=== PATIENT | female | born 1960 | race African-American/Black ===

== ENCOUNTER 2019-06-22 11:15 | Emergency (ER) | payer OTHER ==
[~2019-06-22] VITALS: Ht 165.1 cm; Wt 79.4 kg
[2019-06-22] MEDS ORDERED: ONDANSETRON HCL 4 MG ORAL DISINTEGRATING TAB PO ONE (12:00)
[2019-06-22] MEDS ORDERED: DEXAMETHASONE SOD PHOS 10 MG/1 ML VIAL IM ONE (12:00)
[2019-06-22] MEDS ORDERED: HYDROCODONE/APAP 5MG-325MG TAB PO ONE ×2 (12:00→14:00)
[2019-06-22] MEDS ORDERED: PREDNISONE 20 MG TAB PO ONE (12:00)
--- NOTE | 2019-06-22 12:49 | NUR ---
PT GIVEN TORADOL IM FLEXERAL MEDROL DOSE PK ALL AT [facility] TESTER TODAY AT ER.
[2019-06-22] MEDS ORDERED: CYCLOBENZAPRINE10 MG PO (12:52)
[2019-06-22] MEDS ORDERED: [UNRECOGNIZED DRUG - OTHER] (12:52)
[2019-06-22] MEDS ORDERED: MEDROL DOSE PAK (12:52)
[2019-06-22] MEDS ORDERED: PANTOPRAZOLE SO40 MG PO (12:52)
--- NOTE | 2019-06-22 13:33 | Diagnostic Imaging Report ---
CT LUMBAR SPINE WITHOUT-HOPD HISTORY: Back pain COMPARISON: None. TECHNIQUE: Axial CT images of the lumbar spine were obtained without contrast. Coronal and sagittal reconstructions obtained from the axial data. One or more of the following dose reduction techniques were used: Automated exposure control, adjustment of the mA and/or kV according to patient size, and/or utilization of iterative reconstruction technique. DISCUSSION: Partially visualized posterior thoracolumbar fusion changes span to the L1 level. Associated laminectomies are present. Hardware streak artifacts obscure some details. Associated osteotomy changes are seen along the medial left iliac bone. There are 5 nonrib-bearing lumbar vertebral bodies. Lumbar lordosis is preserved. There is no significant scoliosis or subluxation. No fracture, compression deformity, or destructive osseous lesion is seen. No gross spinal canal mass is seen. The paravertebral and paraspinal soft tissues are unremarkable. Mild multilevel lumbar spondylosis is present. Mild bilateral sacroiliac degenerative changes are present as well. L1-L2: No gross canal or foraminal stenosis. L2-L3: No gross canal or foraminal stenosis. L3-L4: No gross canal or foraminal stenosis. L4-L5: No gross canal or foraminal stenosis. L5-S1: No gross canal or foraminal stenosis. Mild aortoiliac calcified atherosclerosis is present. IMPRESSION: 1. Partially visualized posterior thoracolumbar fusion changes spanning to the L1 level with associated laminectomies. 2. No acute osseous abnormalities. 3. Mild multilevel lumbar spondylosis. No gross canal or foraminal stenosis. Signed by: Dr. Pierre Mckeon M.D. on 06/22/2019 1:29 PM
[2019-06-22] MEDS ORDERED: HYDROCODONE/APAP 5MG-325MG TAB ONE (13:36)
== END 2019-06-22 14:00 | disposition home or self-care (01) ==
LOC: FSED 11:15
DX: M54.5 Low back pain (principal); M54.16 Radiculopathy, lumbar region; X50.0XXA Overexertion from strenuous movement or load, initial encounter; Y92.89 Other specified places as the place of occurrence of the external cause
CPT/HCPCS: 72131; 81003; 99283; J1100

== ENCOUNTER 2019-09-07 10:23 | Emergency (ER) | payer OTHER ==
[~2019-09-07] VITALS: Ht 157.5 cm; Wt 70.3 kg
[~2019-09-07 10:23] MED LIST: CYCLOBENZAPRINE10 MG PO; MEDROL DOSE PAK; PANTOPRAZOLE SO40 MG PO; [UNRECOGNIZED DRUG - OTHER]
--- OUTSIDE RECORDS SUMMARY | 2019-09-07 10:26 | XMS REPORT ---
[facility] Address Unknown Phone Unavailable Care Team Providers Care Condominium Property Manager Name Role Phone Misael ESCUDERO Unavailable Unavailable Problems This patient has no known problems. Allergies, Adverse Reactions, Alerts This patient has no known allergies or adverse reactions. Medications This patient has no known medications. Results Test Description Test Time Test Comments Text Results Atomic Results Result Comments CT LUMBAR SPINE WITHOUT-HOPD 2019-06-22 13:23:00 [place] [address] Patient Name: HOANG DUBOIS MR #: [id number] : 1960 Age/Sex: 59/F Req #: [id number] Adm Physician: Ordered by: SHARMILA ESCUDERO MD Report #: [id number] Location: [facility] Room/Bed: Procedure: [id number] HOPD/CT LUMBAR SPINE WITHOUT-HOPD Exam Date: 06/22/19 Exam Time: 1300 REPORT STATUS: Signed CT LUMBAR SPINE WITHOUT-HOPD HISTORY: Back pain COMPARISON: None. TECHNIQUE: Axial CT images of the lumbar spine were obtained without contrast. Coronal and sagittal reconstructions obtained from the axial data. One or more of the following dose reduction techniques were used: Automated exposure control, adjustment of the mA and/or kV according to patient size, and/or utilization of iterative reconstruction technique. DISCUSSION: Partially visualized posterior thoracolumbar fusion changes span to the L1 level. Associated laminectomies are present. Hardware streak artifacts obscure some details. Associated osteotomy changes are seen along the medial left iliac bone. There are 5 nonrib-bearing lumbar vertebral bodies. Lumbar lordosis is preserved. There is no significant scoliosis or subluxation. No fracture, compression deformity, or destructive osseous lesion is seen. No gross spinal canal mass is seen. The paravertebral and paraspinal soft tissues are unremarkable. Mild multilevel lumbar spondylosis is present. Mild bilateral sacroiliac degenerative changes are present as well. L1-L2: No gross canal or foraminal stenosis. L2- L3: No gross canal or foraminal stenosis. L3-L4: No gross canal or foraminal stenosis. L4-L5: No gross canal or foraminal stenosis. L5- S1: No gross canal or foraminal stenosis. Mild aortoiliac calcified atheros clerosis is present. IMPRESSION: 1. Partially visualized posterior thoracolumbar fusion changes spanning to the L1 level with associated laminectomies. 2. No acute osseous abnormalities. 3. Mild multilevel lumbar spondylosis. No gross canal or foraminal stenosis. Signed by: Dr. Pierre Cobb M.D. on 06/22/2019 1:29 PM Dictated By: PIERRE COBB MD [id number] Transcribed By: GLORY on 06/22/19 1329 COPY TO: SHARMILA ESCUDERO MD
[2019-09-07] MEDS ORDERED: KETOROLAC TROMETHAMINE 60 MG/2 ML VIAL IM ONE (10:45)
[2019-09-07] MEDS ORDERED: ONDANSETRON HCL 4 MG ORAL DISINTEGRATING TAB PO ONE (10:45)
[2019-09-07] MEDS ORDERED: HYDROCODONE/APAP 5MG-325MG TAB PO ONE (10:45)
[2019-09-07] MEDS ORDERED: PREDNISONE 20 MG TAB PO ONE (10:45)
[2019-09-07] MEDS ORDERED: MELOXICAM7.5 MG PO (10:46)
[2019-09-07] MEDS ORDERED: KETOROLAC TROMETHAMINE 60 MG/2 ML VIAL ONE (11:14)
[2019-09-07] MEDS ORDERED: PREDNISONE 20 MG TAB ONE (11:14)
[2019-09-07] MEDS ORDERED: ONDANSETRON HCL 4 MG ORAL DISINTEGRATING TAB ONE (11:14)
[2019-09-07] MEDS ORDERED: HYDROCODONE/APAP 5MG-325MG TAB ONE (11:15)
[2019-09-07 11:52] VITALS: BP 156/90
== END 2019-09-07 11:58 | disposition home or self-care (01) ==
LOC: FSED 10:23
DX: M54.42 Lumbago with sciatica, left side (principal); M54.41 Lumbago with sciatica, right side; M47.26 Other spondylosis with radiculopathy, lumbar region; G89.29 Other chronic pain; I10 Essential (primary) hypertension
CPT/HCPCS: 81003; 96372; 99283; J1885; J7512; Q0162

== ENCOUNTER 2020-09-07 07:34 | Emergency (ER) | payer OTHER ==
[~2020-09-07] VITALS: Ht 157.5 cm; Wt 71.3 kg
[~2020-09-07 07:34] MED LIST changes: +MELOXICAM7.5 MG PO
[2020-09-07] MEDS ORDERED: LORAZEPAM INJ 2 MG/ML VIAL IM ONE (08:15)
[2020-09-07] MEDS ORDERED: KETOROLAC TROMETHAMINE 60 MG/2 ML VIAL IM ONE (08:15)
[2020-09-07] MEDS ORDERED: KETOROLAC TROMETHAMINE 60 MG/2 ML VIAL ONE (08:18)
[2020-09-07] MEDS ORDERED: LORAZEPAM INJ 2 MG/ML VIAL ONE (08:18)
[2020-09-07] MEDS ORDERED: CYCLOBENZAPRINE5 MG PO (08:19)
[2020-09-07] MEDS ORDERED: PREDNISONE20 MG PO (08:19)
--- NOTE | 2020-09-07 08:21 | Emergency Department Note ---
History of Present Illnes History of Present Illness Chief Complaint: low back muscle spasms s/p lifting boxes History of Present Illness This is a 60 year old female . Historian: Patient Arrival Mode: Car Additional Treatment ASSOCIATE APPLICATION DEVELOPER: 0430 gabapentin History limited by: condition of the patient (normal) Scrap Metal Burner Required: No Onset (how long ago): day(s) (1) Location: see above Quality: sharp Radiation: Reports non-radiation Severity: severe Onset quality: gradual Duration (how long): day(s) (1) Timing of current episode: constant Progression: worsening Chronicity: recurrent Context: Reports trauma/injury; Denies recent illness, Denies recent surgery, Denies recent immobilization, Denies recent travel, Denies new medications, Denies hx of DVT/PE, Denies non- compliance w/ medications Relieving factors: none Exacerbating factors: movement Associated symptoms: Reports denies other symptoms Treatments prior to arrival: none Past Medical/Family History Physician Review I have reviewed the patient's past medical and family history. Any updates have been documented here. Past Medical History Recent Fever: No Clinical Suspicion of Infectio: No New/Unexplained Change in Ment: No Past Medical History: Hypertension, GERD, Chronic Back Pain Past Surgical History: Back Surgery Other Surgery: scoliosis repair Social History Smoking Cessation: Never Smoker Counseling Performed: No Alcohol Use: None Any Illegal Drug Use: No Physically hurt or threatened: No Other Any Pre-Existing Lines (PICC,: No Review of Systems Review of Systems Constitutional: Reports no symptoms EENTM: Reports no symptoms Cardiovascular: Reports no symptoms Respiratory: Reports no symptoms Gastrointestinal: Reports no symptoms Genitourinary: Reports no symptoms Musculoskeletal: Reports as per HPI Integumentary: Reports no symptoms Neurological: Reports no symptoms Psychological: Reports no symptoms Endocrine: Reports no symptoms Hematological/Lymphatic: Reports no symptoms Review of other systems: All other systems negative Physical Exam Related Data Allergies: Coded Allergies: Sulfa (Sulfonamide Antibiotics) (Verified Allergy, Unknown, 06/22/19) Triage Vital Signs Vital Signs Date Time Temp Pulse Resp B/P (MAP) Pulse Ox O2 Delivery O2 Flow Rate FiO2 09/07/20 07:40 98.9 81 20 156/85 100 Room Air Vital signs reviewed: Yes Physical Exam CONSTITUTIONAL Constitutional: Present well-developed, Present well-nourished, Present other (+anxious) HENT HENT: Present normocephalic, Present atraumatic, Present oropharynx clear/moist, Present nose normal HENT L/R: Present left ext ear normal, Present right ext ear normal EYES Eyes: Reports PERRL, Reports conjunctivae normal NECK Neck: Present ROM normal, Present supple PULMONARY Pulmonary: Present effort normal, Present breath sounds normal CARDIOVASCULAR Cardiovascular: Present regular rhythm, Present heart sounds normal, Present capillary refill normal, Present normal rate GASTROINTESTINAL Abdominal: Present soft, Present nontender, Present bowel sounds normal GENITOURINARY Genitourinary: Present exam deferred SKIN Skin: Present warm, Present dry MUSCULOSKELETAL Musculoskeletal: Present tenderness (low back), Present other (+muscle spasms/ decrease farom) NEUROLOGICAL Neurological: Present alert, Present oriented x 3, Present no gross motor or sensory deficits PSYCHOLOGICAL Psychological: Present mood/affect normal, Present judgement normal Assessment & Plan Medical Decision Making MDM strain Assessment & Plan Final Impression: (1) Lumbar strain Depart Disposition: HOME, SELF-CARE Last Vital Signs Date Time Temp Pulse Resp B/P (MAP) Pulse Ox O2 Delivery O2 Flow Rate FiO2 09/07/20 07:40 98.9 81 20 156/85 100 Room Air Home Meds Active Scripts Cyclobenzaprine Hcl (FLEXERIL) 5 Mg Tablet, 10 MG PO Q8H PRN for MUSCLE SPASMS, #30 TAB take after prednisone to control pain if need be Prov:FREDERIC SANCHEZ 09/07/20 Prednisone (PREDNISONE) 20 Mg Tab, 60 MG PO DAILY, #18 TAB take all 3 20 mg pills at once Prov:FREDERIC SANCHEZ 09/07/20 Reported Medications Meloxicam (MELOXICAM) 7.5 Mg Tablet, 15 MG PO DAILY, #30 TAB 09/07/19 Cyclobenzaprine Hcl (CYCLOBENZAPRINE HCL) 10 Mg Tablet, 5 MG PO HS, TAB 06/22/19 Pantoprazole Sodium* (PROTONIX) 40 Mg Tablet.dr, 40 MG PO DAILY, TAB 06/22/19 [Amlodipine Besy-Lizz] No Conflict Check 06/22/19 Medications in the ED Ketorolac Tromethamine 60 mg ONCE ONCE IM ; Start 09/07/20 at 08:15; Stop 09/07/20 at 08:16; Status UNV Lorazepam 2 mg ONCE ONCE IM ; Start 09/07/20 at 08:15; Stop 09/07/20 at 08:16; Status UNFREDERIC VELÁSQUEZ Sep 07, 2020 08:21
[2020-09-07 09:45] VITALS: BP 138/85
--- OUTSIDE RECORDS SUMMARY | 2020-09-12 18:20 | XMS REPORT | Clinical Summary ---
Author Author ZAHRA [facility] Address Unknown Phone Unavailable Care Team Providers Care Business Job Titles Name Role Phone Kellie Giron MD PCP [phone] Allergies Comments Active Allergy Reactions Severity Noted Date Sulfa (Sulfonamide 11/30/2015 Antibiotics) Medications End Date Status Medication Sig Dispensed Refills Start Date Active nabumetone (RELAFEN) 500 Take 500 mg 0 MG tablet by mouth 2 (two) times daily. Active amLODIPine-benazepril Take 1 0 (LOTREL 5-10) 5-10 mg per capsule by capsule mouth daily. 01/09/2020 Discontinued (Error) IRON, FERROUS SULFATE, Take by 0 ORAL mouth. 01/11/2020 Discontinued amlodipine-benazepril Take 1 0 (LOTREL) 10-40 mg per capsule by capsule mouth daily. 01/09/2020 Discontinued (Error) sulindac (CLINORIL) 150 Take 150 mg 0 MG tablet by mouth 2 (two) times daily. 01/24/2020 famotidine (PEPCID) 40 MG Take 0.5 14 tablet 0 tablet tablets (20 0 mg total) by mouth 2 (two) times daily for 14 days. Active Problems Problem Noted Date Acute chest pain 01/09/2020 Gastroesophageal reflux disease without esophagitis 01/09/2020 Essential hypertension 01/09/2020 Resolved Problems Problem Noted Date Resolved Date Unstable angina 01/09/2020 01/09/2020 Unstable angina 01/09/2020 01/09/2020 Encounters Care Team Description Date Type Specialty Exposure to SARS-associated coronavirus (Primary Dx) 05/29/2020 Clinical Urgent Care Support Exposure to SARS-associated coronavirus (Primary Dx) 04/25/2020 Clinical Urgent Care Support Exposure to SARS-associated coronavirus (Primary Dx) 03/21/2020 Clinical Urgent Care Support Exposure to SARS-associated coronavirus (Primary Dx) 02/29/2020 Clinical Urgent Care Support Mando Lara Jr., MD Quadri, Syed M., MD Unstable angina (HCC) (Primary Dx); Essential hypertension; Acute chest pain 01/09/2020 Emergency Cardiology - 01/10/2020 01/09/2020 Orders Only General Internal Me dicine 01/09/2020 Travel after 09/07/2019 Social History Date Tobacco Use Types Packs/Day Years Used Never Smoker Smokeless Tobacco: Never Used Drinks/Week oz/Week Comments Alcohol Use No Alcohol Habits Answer Date Recorded How often do you have a drink containing alcohol? Never 01/09/2020 How many drinks containing alcohol do you have on No t asked a typical day when you are drinking? How often do you have six or more drinks on one Not asked occasion? Sex Assigned at Date Recorded Not on file Last Filed Vital Signs Reading Time Taken Comments Vital Sign 122/58 01/10/2020 3:00 PM [employer] Blood Pressure 93 01/10/2020 3:00 PM [employer] Pulse 35.8 C (96.5 F) 01/10/2020 3:00 PM [employer] Temperature 18 01/10/2020 3:00 PM [employer] Respiratory Rate 96% 01/10/2020 3:00 PM [employer] Oxygen Saturation - - Inhaled Oxygen Concentration 64.4 kg (142 lb) 01/09/2020 6:42 AM [employer] Weight 157.5 cm (5' 2") 01/09/2020 6:42 AM [employer] Height 25.97 01/09/2020 6:42 AM [employer] Body Mass Index Plan of Treatment Health Maintenance Due Date Last Done Comments COLON CANCER SCREENING 1958 COLONOSCOPY CERVICAL CANCER SCREENING 1979 PAP ONLY (Age 21-65) INFLUENZA VACCINE (#1) 2020 LIPID PANEL 10/15/2021 10/15/2018 BREAST CANCER SCREENING 01/17/2022 01/18/2020, 10/15/2018, 12/13/2013, Additional history exists Procedures Comments Procedure Name Priority Date/Time Associated Diag nosis SARS-COV2/RT-PCR ([facility] & Routine 05/29/2020 Expos ure to REF LABS) 7:57 AM CDT SARS-associated coronavirus SARS-COV-2(COVID19)HIGHRI Routine 05/29/2020 Expo sure to SKRT-PCR 7:57 AM CDT SARS-associated coronavirus SARS-COV2/RT-PCR ([facility] & Routine 04/25/2020 Expos ure to REF LABS) 9:13 AM CDT SARS-associated coronavirus SARS-COV2/RT-PCR ([facility] & Routine 03/21/2020 Expos ure to REF LABS) 10:04 AM CDT SARS-associated coronavirus SARS-COV2/RT-PCR ([facility] & Routine 02/29/2020 Expos ure to REF LABS) 10:06 AM CDT SARS-associated coronavirus RHYTHM STRIP - SCAN 01/18/2020 4:20 PM CDT RHYTHM STRIP - SCAN 01/12/2020 2:50 PM [employer] REPORT OF PROCEDURE - 01/12/2020 ENDOSCOPY SCAN 2:50 PM [employer] NM MYOCARDIAL PERFUSION Routine 01/10/2020 SPECT, PHARM(LEXISCAN) 12:05 PM [employer] TREADMILL Routine 01/10/2020 TOLERANCE(NON-NUCLEAR 10:15 AM [employer] TREADMILL) ECG 12-LEAD Routine 01/10/2020 10:07 AM [employer] Procedure Note - Interface, External Ris In - 01/10/2020 10:46 AM [employer] Ventricula r Rate 84 BPM Atrial Rate 84 BPM P-R Interval 154 ms QRS Duration 114 ms Q-T Interval 400 ms QTC Calculatio n(Bazett) 472 ms P [place] 74 degrees R [place] 84 degrees T [place] -44 degrees Sinus rhythm with marked sinus arrhythmia Nonspecifi c ST and T wave abnormalit y Prolonged QT Abnormal ECG ECG 12-LEAD Routine 01/10/2020 10:00 AM [employer] ECG 12-LEAD Routine 01/10/2020 10:00 AM [employer] Procedure Note - Interface, External Ris In - 01/10/2020 10:45 AM [employer] Ventricula r Rate 71 BPM Atrial Rate 71 BPM P-R Interval 128 ms QRS Duration 88 ms Q-T Interval 412 ms QTC Calculatio n(Bazett) 447 ms P [place] 31 degrees R [place] 41 degrees T [place] 27 degrees Normal sinus rhythm Normal ECG ECG 12-LEAD Routine 01/10/2020 7:04 AM [employer] TROPONIN I Routine 01/09/2020 1:03 PM [employer] TROPONIN I STAT 01/09/2020 9:48 AM [employer] XR CHEST 1 VIEW STAT 01/09/2020 PORTABLE/BEDSIDE 7:29 AM [employer] ECG 12-LEAD Routine 01/09/2020 7:13 AM [employer] ECG 12-LEAD Routine 01/09/2020 7:13 AM [employer] Procedure Note - Interface, External Ris In - 01/09/2020 4:48 PM [employer] Ventricula r Rate 89 BPM Atrial Rate 89 BPM P-R Interval 138 ms QRS Duration 82 ms Q-T Interval 372 ms QTC Calculatio n(Bazett) 452 ms P [place] 54 degrees R [place] 23 degrees T [place] 5 degrees Normal sinus rhythm Possible Left atrial enlargemen t Borderline ECG When compared with ECG of 0 06:41, Nonspecifi c T wave abnormalit y no longer evident in Anterior leads CBC W/PLT COUNT & AUTO STAT 01/09/2020 DIFFERENTIAL 6:51 AM [employer] PT/APTT STAT 01/09/2020 6:51 AM [employer] CBC W/PLT COUNT & AUTO STAT 01/09/2020 DIFFERENTIAL 6:51 AM [employer] TROPONIN I STAT 01/09/2020 6:51 AM [employer] MAGNESIUM STAT 01/09/2020 6:51 AM [employer] BASIC METABOLIC PANEL (7) STAT 01/09/2020 6:51 AM [employer] ECG 12-LEAD Routine 01/09/2020 6:41 AM [employer] Procedure Note - Interface, External Ris In - 01/09/2020 7:01 AM [employer] Ventricula r Rate 99 BPM Atrial Rate 99 BPM P-R Interval 130 ms QRS Duration 82 ms Q-T Interval 342 ms QTC Calculatio n(Bazett) 438 ms P [place] 58 degrees R [place] 27 degrees T [place] -4 degrees Normal sinus rhythm Nonspecifi c T wave abnormalit y Abnormal ECG When compared with ECG of 2 13:49, Inverted T waves have replaced nonspecifi c T wave abnormalit y in Inferior leads ECG 12-LEAD STAT 01/09/2020 6:41 AM [employer] after 09/07/2019 Results * SARS-CoV2/RT-PCR ([facility] & Ref Labs) (05/29/2020 7:57 AM CDT) Only the most recent of 4 results within the time period is included. SARS-COV2/RT-PC Negative Not Detected, [facility] R Negative, See [facility] external report for MEDICAL CENTER linked test SARS-COV-2 [facility] PERFORMING LAB [facility] Specimen Other - Nasopharyngeal wall structure (body structure) Performing Organization Address [facility] Ph one Number [place] [address] [facility] * SARS-COV-2(COVID19)HIGHRISKRT-PCR (05/29/2020 7:57 AM CDT) SARS-COV-2 NEGATIVE Comment: . [facility] INTERPRETATION Specimen Other - Nasopharyngeal wall structure (body structure) Performing Organization Address [place]/[facility] [[email or web address] Ph one Number [facility] [address] [place] [address] * RHYTHM STRIP - SCAN (01/18/2020 4:20 PM CDT) Only the most recent of 2 results within the time period is included. Narrative Performed At This result has an attachment that is n ot available. * EKG-SCANNED (01/12/2020 2:50 PM [employer]) Narrative Performed At This result has an attachment that is n ot available. * 'Regadenoson' (pharmacologic) Sestamibi (01/10/2020 12:05 PM [employer]) Specimen Narrative Performed At FINAL REPORT [facility] PROCEDURE: MYOCARDIAL PERFUSION SPECT I MAGING (Rest/Stress) CPT CODE: 99549 INDICATION: Chest pain CARDIOVASCULAR PROFILE: CAD History: None Symptoms: Chest pain Risk Factors: Hypertension BMI: 26 Medications: Amlodipine, lisinopril, as pirin STRESS PROTOCOL: Pharmacologic stress was achieved with a 10-second intravenous infusion of regadenoson 0.4 mg. The rad iopharmaceutical was administered 30 seconds after the start of the regadenoson infusion. IMAGING PROTOCOL: 10.7 mCi of Tc-99m sestamibi was inject ed intravenously at rest, and gated SPECT images were obtained. Then, 30.8 mCi of Tc-99m sestamibi was injected intravenously at peak stre ss, and gated SPECT images were obtained. Image quality is good. REST FINDINGS: HR: 74/min BP: 136/100 mmHg Prelim. EKG: Normal sinus rhythm. Perfusion: Normal. Wall Motion: Normal (LVEF 68%). LV Volume: Normal. RV Volume: Normal. STRESS FINDINGS: HR: 82/min (51% of MPHR) BP: 127/80 mmHg Prelim. EKG: No ischemic changes. Symptoms: None (treatment not required) . Perfusion: Normal. LV Volume: Not significantly changed fr om rest. IMPRESSION: 1. Normal study. 2. Normal myocardial perfusion. 3. Normal resting LVEF 4. Normal extracardiac tracer distribut ion. 5. There is no prior study for comparis on. Signed: Jayden Ireland MD Report Verified Date/Time: 01/10/2020 13:26:41 Reading Location: [address] Reading Room Procedure Note Interface, External Ris In - 01/10/2020 1:28 PM [employer] FINAL REPORT PROCEDURE: MYOCARDIAL PERFUSION SPECT IMAGING (Rest/Stress) CPT CODE: [id number] INDICATION: Chest pain CARDIOVASCULAR PROFILE: CAD History: None Symptoms: Chest pain Risk Factors: Hypertension BMI: 26 Medications: Amlodipine, lisinopril, aspirin STRESS PROTOCOL: Pharmacologic stress was achieved with a 10-second intravenous infusion of regadenoson 0.4 mg. The radiopharmaceutical was administered 30 seconds after the start of the regadenoson infusion. IMAGING PROTOCOL: 10.7 mCi of Tc-99m sestamibi was injecte d intravenously at rest, and gated SPECT images were obtained. Then, 30.8 mCi of Tc-99m sestamibi was injected intravenously at peak stress, and gated SPECT images were obtained. Image quality is good. REST FINDINGS: HR: 74/min BP: 136/100 mmHg Prelim. EKG: Normal sinus rhythm. Perfusion: Normal. Wall Motion: Normal (LVEF 68%). LV Volume: Normal. RV Volume: Normal. STRESS FINDINGS: HR: 82/min (51% of MPHR) BP: 127/80 mmHg Prelim. EKG: No ischemic changes. Symptoms: None (treatment not required). Perfusion: Normal. LV Volume: Not significantly changed from rest. IMPRESSION: 1. Normal study. 2. Normal myocardial perfusion. 3. Normal resting LVEF 4. Normal extracardiac tracer distributi on. 5. There is no prior study for compariso n. Signed: Jayden Ireland MD Report Verified Date/Time: 01/10/2020 13:26:41 Reading Location: [address] Reading Room Performing Organization Address City/State/Zipcode Ph one Number GE RIS * Treadmill tolerance(Non-Nuclear Treadmill) (01/10/2020 10:15 AM [employer]) Specimen Narrative Performed At Protocol Name REGOpenEdON GE MUSE Time In Exercise Phase 00:06:25 Max. Systolic BP 127 mmHg Max Diastolic BP 80 mmHg Max Heart Rate 82 BPM Max Predicted Heart Rate 159 BPM Reason For Termination Predetermined en d point Reason for Test CHEST PAIN, ACS SUSPECT ED Target HR Formula (220 - Age)*100% Arrhythmias none Resting ECG Normal sinus rhythm ST Changes No Significant Changes Overall Impression Indeterminate due to pharmacological stress Chest Pain none HR Response To Exercise BP Response To Exercise amlodipine, lisinopril, aspirin Confirmed by fellow Vbiha Shepard ([id number]) on 01/10/2020 11:51:20 AM Confirmed by MD Lizbet, Griselda ([id number]) o n 01/11/2020 1:42:01 PM Procedure Note Interface, External Ris In - 01/11/2020 1:42 PM [employer] Protocol Name REGADENOSON Time In Exercise Phase 00:06:25 Max. Systolic BP 127 mmHg Max Diastolic BP 80 mmHg Max Heart Rate 82 BPM Max Predicted Heart Rate 159 BPM Reason For Termination Predetermined end point Reason for Test CHEST PAIN, ACS SUSPECTED Target HR Formula (220 - Age)*100% Arrhythmias none Resting ECG Normal sinus rhythm ST Changes No Significant Changes Overall Impression Indeterminate due to pharmacological stress Chest Pain none HR Response To Exercise BP Response To Exercise amlodipine, lisinopril, aspirin Confirmed by fellow Vibha Shepard ([id number]) on 01/10/2020 11:51:20 AM Confirmed by MD Somers Mahboob ([id number]) on 01/11/2020 1:42:01 PM Performing Organization Address [facility] one Number GE MUSE * ECG 12 lead (01/10/2020 10:00 AM [employer]) Only the most recent of 4 results within the time period is included. Specimen Narrative Performed At Ventricular Rate 71 BPM GE MUSE Atrial Rate 71 BPM P-R Interval 128 ms QRS Duration 88 ms Q-T Interval 412 ms QTC Calculation(Bazett) 447 ms P [place] 31 degrees R [place] 41 degrees T [place] 27 degrees Normal sinus rhythm Normal ECG Confirmed by Quentin Santiago ([id number]) on 01/11/2020 12:33:56 PM Procedure Note Interface, External Ris In - 01/11/2020 12:34 PM [employer] Ventricular Rate 71 BPM Atrial Rate 71 BPM P-R Interval 128 ms QRS Duration 88 ms Q-T Interval 412 ms QTC Calculation(Bazett) 447 ms P [place] 31 degrees R [place] 41 degrees T [place] 27 degrees Normal sinus rhythm Normal ECG Confirmed by Quentin Santiago ([id number]) on 01/11/2020 12:33:56 PM Performing Organization Address [facility] one Number GE MUSE * Troponin I (01/09/2020 1:03 PM [employer]) Only the most recent of 3 results within the time period is included. Troponin I 0.02 0.00 - 0.03 ng/mL [facility] Specimen Blood Narrative Performed At Troponin I (TnI) levels must be interpreted in the co ntext of the presenting [facility] symptoms and the clinical findings. Elevated TnI leve ls indicate myocardial [facility] damage, but are not specific for ischem ic heart disease. Elevated TnI levels are seen in patients with other cardiac con ditions (including myocarditis and congestive heart failure), and slight T nI elevations occur in patients with other conditions, including sepsis, anjelica al failure, acidosis, acute neurological disease, and persistent tachyarrhythmia . Armed Security Guard ID - JAYE Melo Performing Organization Address [facility]/Zipcode Ph one Number [facility] [address] [place], [place] [address] [facility] * XR chest 1 view portable / bedside (01/09/2020 7:29 AM [employer]) Specimen Narrative Performed At FINAL REPORT RIS INDICATION: CHEST PAIN COMPARISON: October 04, 2012 TECHNIQUE: Single frontal view of the c hest. FINDINGS: Lungs and pleura: Clear lungs. No effus ion. Heart and mediastinum: Normal heart siz e. Unremarkable mediastinal contours. Osseous structures: Interval multilevel thoracic spinal stabilization. Visible portions of the construct are intact. Other: None. IMPRESSION: No acute intrathoracic abnormality. Signed: JR Daly Robert MD Report Verified Date/Time: 01/09/2020 07:52:31 Reading Location: [address] Neuro Re ading Room Procedure Note Interface, External Ris In - 01/09/2020 7:54 AM [employer] FINAL REPORT INDICATION: CHEST PAIN COMPARISON: October 04, 2012 TECHNIQUE: Single frontal view of the chest. FINDINGS: Lungs and pleura: Clear lungs. No effusion. Heart and mediastinum: Normal heart size. Unremarkable mediastinal contours. Osseous structures: Interval multilevel thoracic spinal stabilization. Visible portions of the construct are intact. Other: None. IMPRESSION: No acute intrathoracic abnormality. Signed: JR Daly Robert MD Report Verified Date/Time: 01/09/2020 07:52:31 Reading Location: [address] Neuro Reading Room Performing Organization Address City/State/Zipcode Ph one Number RIS * PT/PTT (01/09/2020 6:51 AM [employer]) Protime 13.0 11.9 - 14.2 seconds [facility] INR 1.0 <=5.9 [facility] PTT 29.8 22.5 - 36.0 seconds [facility] Specimen Blood Narrative Performed At Effective 04/05/2019: PT Reference Range Change [facility] New: 11.9-14.2 Previous: 11.7-14.7 [facility] [place] TER RECOMMENDED COUMADIN/WARFARIN INR THERA PY RANGES STANDARD DOSE: 2.0-3.0 Includes: PROP HYLAXIS for venous thrombosis, systemic embolization; TREATMENT for venous thro mbosis and/or pulmonary embolus. HIGH RISK: Target INR is 2.5-3.5 for pa tients wiht mechanical heart valves. Performing Organization Address City/State/Zipcode Ph one Number [facility] [address] [place] [address] [facility] * CBC with platelet count + automated diff (01/09/2020 6:51 AM [employer]) WBC 6.2 3.5 - 10.5 K/L [facility] RBC 4.75 3.93 - 5.22 M/L [facility] Hemoglobin 11.3 11.2 - 15.7 GM/DL [facility] Hematocrit 34.5 34.1 - 44.9 % [facility] MCV 72.6 (L) 79.4 - 94.8 fL [facility] MCH 23.8 (L) 25.6 - 32.2 pg [facility] MCHC 32.8 32.2 - 35.5 GM/DL [facility] RDW 15.9 (H) 11.7 - 14.4 % [facility] Platelets 248 150 - 450 K/CU MM [facility] MPV 10.0 9.4 - 12.3 fL [facility] nRBC 0 0 - 0 /100 WBC [facility] % Neutros 58 % [facility] % Lymphs 33 % [facility] % Monos 7 % [facility] % Eos 1 % [facility] % Baso 1 % [facility] # Neutros 3.62 1.56 - 6.13 K/L [facility] # Lymphs 2.08 1.18 - 3.74 K/L [facility] # Monos 0.41 (H) 0.24 - 0.36 K/L [facility] # Eos 0.08 0.04 - 0.36 K/L [facility] # Baso 0.04 0.01 - 0.08 K/L [facility] Immature 0 0 - 1 % [facility] Specimen Blood Performing Organization Address [facility] Ph one Number [place] [phone] [place] [address] * Magnesium (01/09/2020 6:51 AM [employer]) Magnesium 2.0 1.6 - 2.6 mg/dL [facility] Specimen Blood Narrative Performed At Armed Security Guard ID - [id number] [facility] Performing Organization Address [facility] Ph one Number [place] [phone] * Basic Metabolic Panel (01/09/2020 6:51 AM [employer]) Sodium 138 136 - 145 meq/L [facility] Potassium 3.8 3.5 - 5.1 meq/L [facility] Chloride 103 98 - 107 meq/L [facility] CO2 23 22 - 29 meq/L [facility] BUN 9 7 - 21 mg/dL [facility] Creatinine 0.68 0.57 - 1.25 mg/dL [facility] Glucose 104 70 - 105 mg/dL [facility] Calcium 9.3 8.4 - 10.2 mg/dL [facility] EGFR Comment: INSUFFICIENT CLINICAL [facility] DATA TO CALCULATE ESTIMATED [facility] GFR. MEDICAL CENTER Specimen Blood Narrative Performed At Armed Security Guard ID - [id number] [facility] Performing Organization Address City/State/Zipcode Ph one Number [facility] [address] [place], [place] [address] [facility] after 09/07/2019 Insurance Type Payer Benefit Subscriber ID Effective Phone Address Plan / Dates Group HMO/POS CIG[employer] - MGD CARE CIGNA [id number] 2019-P [facility] CDC REVIEW CDC REVIEW [id number] 2020- [address] [place] [address] Advance Directives For more information, please contact: [phone] Date Inactivated Comments Code Status Date Activated 01/10/2020 9:06 PM Full Code 01/09/2020 9:54 AM This code status was determined by: Patient
--- OUTSIDE RECORDS SUMMARY | 2020-09-12 18:20 | XMS REPORT | Continuity of Care Document ---
Author Author [facility] t Organization [facility] t Address [address] [place] [phone] Phone Unavailable Care Team Providers Care Sole Layer Name Role Phone IBRAHIMA ARIZA DO PCP Bhavana Lara MD Attphys Viviane Dennison MD Attphys BHAVANA LARA Attphys Unavailable Misael ESCUDERO Attphys Unavailable Viviane DENNISON JIMMY Admphys Unavailable Payers Payer Name Policy Type Policy Number Effective Date Expiration Date S sudarshan CIGNA - MGD CARECIGNA SELECT [id number] 2019-P resentHMO/POS [id number] 2019 00:00:00 [facility] REVIEWCDC [id number] [address] [id number] 2020 00:00:00 [facility] [employer] [facility] [id number] 2018 00:00: 00 [facility] Problems Condition Name Condition Details Condition Category Status Onset Date Resolution Date Last Treatment Date Treating Clinician Comments Source Acute chest pain Acute chest pain Disease Active 2020-01-09 00:00:00 [facility] Gastroesophageal reflux disease without esophagitis [place] stroesophageal reflux disease without esophagitis Disease Active 2020-01-09 00:00:00 [facility] Essential hypertension Essential hypertension Disease Active 2020-01-09 00:00:00 [facility] History of Past Illness Condition Name Condition Details Condition Category Status Onset Date Resolution Date Last Treatment Date Treating Clinician Comments Source Unstable angina Unstable angina Disease Resolved 2020-01-09 00:0 0:00 2020-01-09 00:00:00 2020-01-09 11:06:11 [facility] Allergies, Adverse Reactions, Alerts Allergy Name Allergy Type Status Severity Reaction(s) Onset Date Inacti ve Date Treating Clinician Comments Source Sulfa (Sulfonamide Antibiotics) Allergy to Substance Active 2019-06-22 00:00:00 [facility] Sulfa (Sulfonamide Antibiotics) Propensity to adverse reactions Activ e 2015-11-30 00:00:00 [facility] Social History Social Habit Start Date Stop Date Quantity Comments Source History SDOH Alcohol Std Drinks [facility] History SDOH Alcohol Binge [facility] Sex Assigned At [facility] Tobacco use and exposure 2020-01-09 00:00:00 2020-01-09 00:00:00 Slywiae r used [facility] Alcohol intake 2020-01-09 00:00:00 2020-01-09 00:00:00 Current non-drinker of alcohol (finding) [facility] Abdifatah r History SDOH Alcohol Frequency 2020-01-09 00:00:00 2020-01-09 00:00:0 0 1 [facility] Smoking Status Start Date Stop Date Source Never smoker [facility] Medications Ordered Medication Name Filled Medication Name Start Date Stop Da te Current Medication? Ordering Clinician Indication Dosage Frequency Signature (SIG) Comments Components Source amLODIPine-benazepril (LOTREL 5-10) 5-10 mg per capsule 2020-01-11 18:08:13 Yes 1{capsule} QD Take 1 capsule by mouth daily. [facility] amlodipine-benazepril (LOTREL) 10-40 mg per capsule 2020-01-11 18:07:57 2020-01-11 00:00:00 No 1{capsule} QD Take 1 capsule by mouth daily. [facility] nabumetone (RELAFEN) 500 MG tablet 2020-01-10 19:06:23 Yes 500mg Q.5D Take 500 mg by mouth 2 (two) times daily. [facility] famotidine (PEPCID) 40 MG tablet 2020-01-10 00:00:00 2020-01 23:59:00 No 20mg Q.5D Take 0.5 tablets (20 mg total) by mouth 2 (two) times daily for 14 days. [facility] sulindac (CLINORIL) 150 MG tablet 2020-01-09 10:14:51 2019 00:00:00 No 150mg Q.5D Take 150 mg by mouth 2 (two) times daily . [facility] IRON, FERROUS SULFATE, ORAL 2020-01-09 10:14:47 2020-01-09 00:00 :00 No Take by mouth. [facility] Amlodipine Besy-Lizz Amlodipine Besy-Simon Yes [facility] Cyclobenzaprine Hcl 10 Mg Tablet Cyclobenzaprine Hcl 10 Mg Tablet Yes 5 Bedtime [facility] Meloxicam 7.5 Mg Tablet Meloxicam 7.5 Mg Tablet Yes 15 Daily [facility] Pantoprazole Sodium (Protonix) 40 Mg Tablet. Pantopr azole Sodium (Protonix) 40 Mg Tablet. Yes 40 Daily [facility] Medrol Dose Guido , Medrol Dose Guido , 2019-09-07 00:00:00 No [facility] Vital Signs Vital Name Observation Time Observation Value Comments Source Systolic blood pressure 2020-01-10 15:00:00 122 mm[Hg] [facility] Diastolic blood pressure 2020-01-10 15:00:00 58 mm[Hg] [facility] Heart rate 2020-01-10 15:00:00 93 /min [facility] Body temperature 2020-01-10 15:00:00 35.83 Veronica [facility] Respiratory rate 2020-01-10 15:00:00 18 /min [facility] Oxygen saturation in Arterial blood by Pulse oximetry 01-09 15:00:00 96 /min [facility] Body height 2020-01-09 06:42:00 157.5 cm [facility] Body weight 2020-01-09 06:42:00 64.411 kg [facility] BMI 2020-01-09 06:42:00 25.97 kg/m2 [facility] Procedures Procedure Date / Time Performed Performing Clinician [facility] e SARS-COV2/RT-PCR ([facility]) 2020-05-29 07:57:35 López Feliz [facility] SARS-COV-2(COVID19)HIGHRISKRT-PCR 2020-05-29 07:57:00 Ronnie Feliz [facility] SARS-COV2/RT-PCR ([facility]) 2020-04-25 09:13:01 López Feliz [facility] SARS-COV2/RT-PCR ([facility]) 2020-03-21 10:04:56 López Feliz [facility] SARS-COV2/RT-PCR ([facility]) 2020-02-29 10:06:23 López Feliz [facility] RHYTHM STRIP - SCAN 2020-01-18 16:20:15 Provider, Default Scanni [facility] RHYTHM STRIP - SCAN 2020-01-12 14:50:12 Provider, Default [facility] REPORT OF PROCEDURE - ENDOSCOPY SCAN 2020-01-12 14:50:08 Pro vider, Default Scanning [facility] NM MYOCARDIAL PERFUSION SPECT, PHARM(LEXISCAN) 2020-01-10 12 :05:00 Jimmy Dennison [facility] TREADMILL TOLERANCE(NON-NUCLEAR TREADMILL) 2020-01-10 10:15: 42 Unknown, Hl7 [facility] ECG 12-LEAD 2020-01-10 10:07:38 Unknown, H[facility]7 [facility] ECG 12-LEAD 2020-01-10 10:00:23 Unknown, [facility] ECG 12-LEAD 2020-01-10 07:04:19 Unknown, 7 [facility] TROPONIN I 2020-01-09 13:03:00 Jimmy Dennison [facility] TROPONIN I 2020-01-09 09:48:00 Marco, [facility] XR CHEST 1 VIEW PORTABLE/BEDSIDE 2020-01-09 07:29:00 Marco, [facility] ECG 12-LEAD 2020-01-09 07:13:59 Unknown, Hl7 Doctor [facility] BASIC METABOLIC PANEL (7) 2020-01-09 06:51:00 Marco, [facility] MAGNESIUM 2020-01-09 06:51:00 Marco, [facility] TROPONIN I 2020-01-09 06:51:00 Marco, [facility] PT/APTT 2020-01-09 06:51:00 [facility], [facility] CBC W/PLT COUNT & AUTO DIFFERENTIAL 2020-01-09 06:51:00 Marco, Peyman toribio [facility] ECG 12-LEAD 2020-01-09 06:41:36 Unknown, Hl7 Doctor [facility] Plan of Care Planned Activity Planned Date Details Comments Source Future Scheduled Test 2022-01-17 00:00:00 Screening for senait gnant neoplasm of breast (procedure) [code = 792393391] [facility] Future Scheduled Test 2021-10-15 00:00:00 Lipid panel (proce dure) [code = 04871652] [facility] Future Scheduled Test 2020-07-09 00:00:00 INFLUENZA VACCINE (#1) [code = INFLUENZA VACCINE (#1)] [facility] Future Scheduled Test 1979 00:00:00 Screening for senait gnant neoplasm of cervix (procedure) [code = 118564202] [facility] Future Scheduled Test 1958 00:00:00 Screening for senait gnant neoplasm of colon (procedure) [code = 155546203] [facility] Encounters Start Date/Time End Date/Time Encounter Type Admission Type Attendi ng Clinicians Care Facility Care Department Encounter ID Source 2019-09-07 10:23:00 2019-09-07 11:58:00 Departed Emergency Room [facility] [id number] [facility] 2019-06-22 11:15:00 2019-06-22 14:00:00 Departed Emergency Room 1 SHARMILA ESCUDERO [facility] [id number] [facility] Results Test Description Test Time Test Comments Results Result Comments Source SARS-COV-2(COVID19)HIGHRISKRT-PCR 2020-05-31 03:02:00 Test Item SARS-COV-2 INTERPRETATION (test code = 74616-8) [facility]GAT[facility]2020-05-31 03:01:00* Test Item Value Reference Range Interpretation Comments SARS-COV2/RT-PCR (test code = 61813-4) Negative N ot Detected, Negative, See external report for linked test SARS-COV-2 PERFORMING LAB (test code = 90942-3) [facility]2020-05-31 03:01:00* Test Item Value Reference Range Interpretation Comments SARS-COV2/RT-PCR (test code = 0581125) Negative N ot Detected, Negative, See external report for linked test SARS-COV-2 PERFORMING LAB (test code = 9422952) CPL SARS-COV2/RT-PCR ([facility])2020-04-27 07:43:00* Test Item Value Reference Range Interpretation Comments SARS-COV2/RT-PCR (test code = 0742299) Negative Not Detected, N egative SARS-COV-2 PERFORMING LAB (test code = 9285516) CPL SARS-COV2/RT-PCR ([facility])2020-03-22 19:38:00* Test Item Value Reference Range Interpretation Comments SARS-COV2/RT-PCR (test code = 8324981) Negative Not Detected, N egative SARS-COV-2 PERFORMING LAB (test code = 0097083) CPL SARS-COV2/RT-PCR ([facility] REF [facility])2020-03-05 15:47:00* Test Item Value Reference Range Interpretation Comments SARS-COV2/RT-PCR (test code = 5109402) Negative Not Detected, N egative SARS-COV-2 PERFORMING LAB (test code = 7669834) CPL Treadmill tolerance(Non-Nuclear Treadmill)2020-01-11 13:42:24Interface, External Ris In 01/11/2020 1:42 PM CSTProtocol Name REGADENOSON Time In Exercise Phase 00:06:25 Max. Systolic BP 127 mmHgMax Diastolic BP 80 mmHgMax Heart Rate 82 BPMMax Predicted Heart Rate 159 BPMReason For Termination Predetermined end point Reason for Test CHEST PAIN, ACS SUSPECTED Target HR Formula (220 - Age)*100% Arrhythmias none Resting ECG Normal sinus rhythm ST Changes No S ignificant Changes Overall Impression Indeterminate due to pharmacological stres s Chest Pain none HR Response To Exercise BP Response To Exercise amlodipine, lisinopril, aspirinConfirmed by fellow Vibha Shepard ([id number]) on 01/10/2020 11:51: 20 AMConfirmed by MD Somers Mahboob ([id number]) on 01/11/2020 1:42:01 [facility] [id number] 12:34:01Interface, External Ris In - 01/11/2020 12:34 PM CSTVentricular Rate 71 BPMAtrial Rate 71 BPMP-R Interval 128 msQRS Duration 88 msQ-T Interval 412 msQTC Calculation(Bazett) 447 msP [place] 31 degreesR [place] 41 degreesT [place] 27 degreesNormal sinus rhythmNormal ECGConfirmed by Quentin Santiago ([id number]) on 01/11/2020 12:33:56 [facility] MYOCARD IMAGING, MULTI, PHARM, [id number] 13:26:00NPO for 4 hr and caffeine-free for 12 hr prior to testing. Do it only if second set of troponin is negativeReason for exam:->chest painFINAL REPORT PROCEDURE: MYOCARDIAL PERFUSION SPECT IMAGING (Rest/Stress)CPT CODE: 11545 INDICATION: Chest pain CARDIOVASCULAR PROFILE:CAD History: NoneSymptoms: Chest painRisk Factors: HypertensionBMI: 26Medications: Amlodipine, lisinopril, aspirin STRESS PROTOCOL:Pharmacologic stress was achieved with a 10-second intravenous infusion of regadenoson 0.4 mg. The radiopharmaceutical was administered 30 seconds after the start of the regadenoson infusion. IMAGING PROTOCOL:10.7 mCi of Tc-99m sestamibi was injected intravenously at rest, and gated SPECT images were obtained. Then, 30.8 mCi of Tc-99m sestamibi was i njected intravenously at peak stress, and gated SPECT images were obtained. Imag e quality is good. REST FINDINGS:HR: 74/minBP: 136/100 mmHgPrelim. EKG: Normal s inus rhythm.Perfusion: Normal.Wall Motion: Normal (LVEF 68%).LV Volume: Normal.R V Volume: Normal. STRESS FINDINGS:HR: 82/min (51% of MPHR)BP: 127/80 mmHgPrelim. EKG: No ischemic changes.Symptoms: None (treatment not required).Perfusion: Nor mal.LV Volume: Not significantly changed from rest. IMPRESSION:1. Normal study.2 . Normal myocardial perfusion. 3. Normal resting LVEF4. Normal extracardiac trac er distribution.5. There is no prior study for comparison. Signed: Yvon Ireland MDReport Verified Date/Time: 01/10/2020 13:26:41 Reading Location: [address] Reading Room 'Regadenoson' (pharmacologic) [id number] 13:26:00Interface, External Ris In - 01/10/2020 1:28 PM CSTFINAL REPORT PROCEDURE: MYOCARDIAL PERFUSION SPECT IMAGING (Rest/Stress)CPT CODE: 70791 INDICATION: Chest pain CARDIOVASCULAR PROFILE:CAD History: NoneSymptoms: Chest painRisk Factors: HypertensionBMI: 26Medications: Amlodipine, lisinopril, aspirin STRESS PROTOCOL:Pharmacologic stress was achieved with a 10-second intravenous infusion of regadenoson 0.4 mg. The radiopharmaceutical was administered 30 seconds after the start of the regadenoson infusion. IMAGING PROTOCOL:10.7 mCi of Tc-99m sestamibi was injected intravenously at rest, and gated SPECT images were obtained. Then, 30.8 mCi of Tc-99m sestamibi was injected intravenously at peak stress, and gated SPECT images were obtained. Image quality is good. REST FINDINGS:HR: 74/minBP: 136/100 mmHgPrelim. EKG: Normal sinus rhythm.Perfusion: Normal.Wall Motion: Normal (LVEF 68%).LV Volume: Normal.RV Volume: Normal. STRESS FINDINGS:HR: 82/min (51% of MPHR)BP: 127/80 mmHgPrelim. EKG: No ischemic changes.Symptoms: None (treatment not required).Perfusion: Normal.LV Volume: Not significantly changed from rest. IMPRESSION:1. Normal study.2. Normal myocardial perfusion. 3. Normal resting LVEF4. Normal extracardiac tracer distribution.5. There is no prior study for comparison. Signed: Yvon Irelandeport Verified Date/Time: 01/10/2020 13:26:41 Reading Location: [address] Reading Room [facility] [id number] 14:03:00* Test Item Value Reference Range Interpretation Comments Troponin I (test code = 44246-5) 0.02 ng/mL 0-0.03 KYLAH (test code = KYLAH) Troponin I (TnI) levels must be interpreted in the context of the presenting symptoms and the clinical findings. Elevated TnI levels indicate myocardial damage, but are not specific for ischemic heart disease. Elevated TnI levels are seen in patients with other cardiac conditions (including myocarditis and congestive heart failure), and slight TnI elevations occur in patients with other conditions, including sepsis, renal failure, acidosis, acute neurological disease, and persistent tachyarrhythmia.Wellness Program Manager ID - JAYE C Lab Interpretation (test code = 38259-9) Normal [facility] [id number] 14:03:00* Test Item Value Reference Range Interpretation Comments TROPONIN I (BEAKER) (test code = 397) 0.02 ng/mL 0.00-0.03 Troponin I (TnI) levels must be interpreted in the context of the presenting sym ptoms and the clinical findings. Elevated TnI levels indicate myocardial damage, but are not specific for ischemic heart disease. Elevated TnI levels are seen in patients with other cardiac conditions (including myocarditis and congestive h eart failure), and slight TnI elevations occur in patients with other conditions , including sepsis, renal failure, acidosis, acute neurological disease, and per sistent tachyarrhythmia.Wellness Program Manager ID - JAYE GRAY [id number] 10:36:00* Test Item Value Reference Range Interpretation Comments TROPONIN I (BEAKER) (test code = 397) < ng/mL 0.00-0.03 Troponin I (TnI) levels must be interpreted in the context of the presenting sym ptoms and the clinical findings. Elevated TnI levels indicate myocardial damage, but are not specific for ischemic heart disease. Elevated TnI levels are seen in patients with other cardiac conditions (including myocarditis and congestive h eart failure), and slight TnI elevations occur in patients with other conditions , including sepsis, renal failure, acidosis, acute neurological disease, and per sistent tachyarrhythmia.Wellness Program Manager ID - NTPRAD, CHEST, 1 VIEW, NON [id number] 07:52:00Reason for exam:->CHEST PAINFINAL REPORT INDICATION: CHEST PAIN COMPARISON: October 04, 2012 TECHNIQUE: Single frontal view of the chest. FINDINGS: Lungs and pleura: Clear lungs. No effusion.Heart and mediastinum: Normal heart size. Unremarkable mediastinal contours.Osseous structures: Interval multilevel thoracic spinal stabilization. Visible portions of the construct are intact.Other: None. IMPRESSION: No acute intrathoracic abnormality. Signed: JR Daly Robert MDReport Verified Date/Time: 01/09/2020 07:52:31 Reading Location: [address] Neuro Reading Room chest 1 view portable / [id number] 07:52:00Interface, External Ris In - 01/09/2020 7:54 AM CSTFINAL REPORT INDICATION: CHEST PAIN COMPARISON: October 04, 2012 TECHNIQUE: Single frontal view of the chest. FINDINGS: Lungs and pleura: Clear lungs. No effusion.Heart and mediastinum: Normal heart size. Unremarkable mediastinal contours.Osseous structures: Interval multilevel thoracic spinal stabilization. Visible portions of the construct are intact.Other: None. IMPRESSION: No acute intrathoracic abnormality. Signed: JR Addy, Vibha BELLAeport Verified Date/Time: 01/2020 07:52:31 Reading Location: [address] Neuro Reading Room Electronic ally signed by: VIBHA DALY on 01/09/2020 07:52 AM [facility] Metabolic [id number] 07:33:00* Test Item Value Reference Range Interpretation Comments Sodium (test code = 2951-2) 138 meq/L 136-145 Potassium (test code = 2823-3) 3.8 meq/L 3.5-5.1 Chloride (test code = 2075-0) 103 meq/L 98-107 CO2 (test code = 8-9) 23 meq/L 22-29 BUN (test code = 3094-0) 9 mg/dL 7-21 Creatinine (test code = 2160-0) 0.68 mg/dL 0.57-1.25 Glucose (test code = 2345-7) 104 mg/dL 70-105 Calcium (test code = 41563-8) 9.3 mg/dL 8.4-10.2 EGFR (test code = 83837-1) I NSUFFICIENT CLINICAL DATA TO CALCULATE ESTIMATED GFR. KYLAH (test code = KYLAH) Wellness Program Manager ID - NTP [facility] METABOLIC [id number] 07:33:00* Test Item Value Reference Range Interpretation Comments SODIUM (BEAKER) (test code = 381) 138 meq/L 136-145 POTASSIUM (BEAKER) (test code = 379) 3.8 meq/L 3.5-5.1 CHLORIDE (BEAKER) (test code = 382) 103 meq/L 98-107 CO2 (BEAKER) (test code = 355) 23 meq/L 22-29 BLOOD UREA NITROGEN (BEAKER) (test code = 354) 9 mg/dL 7-21 CREATININE (BEAKER) (test code = 358) 0.68 mg/dL 0.57-1.25 GLUCOSE RANDOM (BEAKER) (test code = 652) 104 mg/dL 70-105 CALCIUM (BEAKER) (test code = 697) 9.3 mg/dL 8.4-10.2 EGFR (BEAKER) (test code = 1092) INSUFFICIENT CLINICAL DATA TO CALCULATE ESTIMATED GFR. Wellness Program Manager ID - NTPTROPONIN [id number] 07:22:00* Test Item Value Reference Range Interpretation Comments TROPONIN I (BEAKER) (test code = 397) < ng/mL 0.00-0.03 Troponin I (TnI) levels must be interpreted in the context of the presenting sym ptoms and the clinical findings. Elevated TnI levels indicate myocardial damage, but are not specific for ischemic heart disease. Elevated TnI levels are seen in patients with other cardiac conditions (including myocarditis and congestive h eart failure), and slight TnI elevations occur in patients with other conditions , including sepsis, renal failure, acidosis, acute neurological disease, and per sistent tachyarrhythmia.Wellness Program Manager ID - [id number] 07:15:00* Test Item Value Reference Range Interpretation Comments Magnesium (test code = 91064-8) 2.0 mg/dL 1.6-2.6 KYLAH (test code = KYLAH) Wellness Program Manager ID - NTP Lab Interpretation (test code = 09374-2) [id number] 07:15:00* Test Item Value Reference Range Interpretation Comments Protime (test code = 5902-2) 13.0 11.9- 14.2 seconds INR (test code = 6301-6) 1.0 <=5.9 PTT (test code = 10795-6) 29.8 22.5- 36.0 seconds KYLAH (test code = KYLAH) Effective 04/05/2019: PT Refe rence Range ChangeNew: 11.9- 14.2 Previous: 11.7-14.7 RECOMMENDED COUMADIN/WARFARIN INR THERAPY RANGESSTANDARD DOSE: 2.0-3.0 Includes: PROPHYLAXIS for venous thrombosis, sys temic embolization; TREATMENT for venous thrombosis and/or pulmonary embolus.HIGH RISK: Target INR is 2.5-3.5 for patients wiht mechanical heart valves. Lab Interpretation (test code = 14171-1) [facility] 07:15:00* Test Item Value Reference Range Interpretation Comments MAGNESIUM (BEAKER) (test code = 627) 2.0 mg/dL 1.6-2.6 Wellness Program Manager ID - [id number]/[id number] 07:15:00* Test Item Value Reference Range Interpretation Comments PROTIME (BEAKER) (test code = 759) 13.0 seconds 11.9-14.2 INR (BEAKER) (test code = 370) 1.0 <=5.9 PARTIAL THROMBOPLASTIN TIME (BEAKER) (test code = 760) 29.8 seconds 22.5-36.0 Effective 04/05/2019: PT Reference Range ChangeNew: 11.9-14.2 Previous: 11.7-14. 7RECOMMENDED COUMADIN/WARFARIN INR THERAPY RANGESSTANDARD DOSE: 2.0-3.0 Include s: PROPHYLAXIS for venous thrombosis, systemic embolization; TREATMENT for venou s thrombosis and/or pulmonary embolus.HIGH RISK: Target INR is 2.5-3.5 for patie nts wiht mechanical heart valves.CBC with platelet count + automated diff 2020-01-09 07:02:00* Test Item Value Reference Range Interpretation Comments WBC (test code = 6690-2) 6.2 3.5- 10.5 K/L RBC (test code = 789-8) 4.75 3.93- 5.22 M/L MCHC (test code = 786-4) 32.8 32.2- 35.5 GM/DL Hematocrit (test code = 4544-3) 34.5 % 34.1-44.9 MCV (test code = 787-2) 72.6 fL 79.4-94.8 L MCH (test code = 785-6) 23.8 pg 25.6-32.2 L RDW (test code = 788-0) 15.9 % 11.7-14.4 H Platelets (test code = 777-3) 248 150- 450 K/CU MM MPV (test code = 47996-4) 10.0 fL 9.4-12.3 nRBC (test code = 413) 0 0- 0 /100 WBC % Neutros (test code = 429) 58 % % Lymphs (test code = 430) 33 % % Monos (test code = 431) 7 % % Eos (test code = 432) 1 % % Baso (test code = 437) 1 % # Neutros (test code = 670) 3.62 1.56- 6.13 K/L # Lymphs (test code = 414) 2.08 1.18- 3.74 K/L # Monos (test code = 415) 0.41 0.24- 0.36 K/L H # Eos (test code = 416) 0.08 0.04- 0.36 K/L # Baso (test code = 417) 0.04 0.01- 0.08 K/L Immature Granulocytes-Relative (test code = 2801) 0 % 0-1 Lab Interpretation (test code = 30707-1) Abnormal [facility] W/PLT COUNT & AUTO [id number] 07:02:00* Test Item Value Reference Range Interpretation Comments WHITE BLOOD CELL COUNT (BEAKER) (test code = 775) 6.2 K/ L 3.5- 10.5 RED BLOOD CELL COUNT (BEAKER) (test code = 761) 4.75 M/ L 3.93-5 .22 HEMOGLOBIN (BEAKER) (test code = 410) 11.3 GM/DL 11.2-15.7 HEMATOCRIT (BEAKER) (test code = 411) 34.5 % 34.1-44.9 MEAN CORPUSCULAR VOLUME (BEAKER) (test code = 753) 72.6 fL 79. 4-94.8 L MEAN CORPUSCULAR HEMOGLOBIN (BEAKER) (test code = 751) 23.8 pg 25.6-32.2 L MEAN CORPUSCULAR HEMOGLOBIN CONC (BEAKER) (test code = 752) 32.8 GM/DL 32.2-35.5 RED CELL DISTRIBUTION WIDTH (BEAKER) (test code = 412) 15.9 % 11.7-14.4 H PLATELET COUNT (BEAKER) (test code = 756) 248 K/CU MM 150-450 MEAN PLATELET VOLUME (BEAKER) (test code = 754) 10.0 fL 9.4-12 .3 NUCLEATED RED BLOOD CELLS (BEAKER) (test code = 413) 0 /100 WBC 0 -0 NEUTROPHILS RELATIVE PERCENT (BEAKER) (test code = 429) 58 % LYMPHOCYTES RELATIVE PERCENT (BEAKER) (test code = 430) 33 % MONOCYTES RELATIVE PERCENT (BEAKER) (test code = 431) 7 % EOSINOPHILS RELATIVE PERCENT (BEAKER) (test code = 432) 1 % BASOPHILS RELATIVE PERCENT (BEAKER) (test code = 437) 1 % NEUTROPHILS ABSOLUTE COUNT (BEAKER) (test code = 670) 3.62 K/ L 1.56-6.13 LYMPHOCYTES ABSOLUTE COUNT (BEAKER) (test code = 414) 2.08 K/ L 1.18-3.74 MONOCYTES ABSOLUTE COUNT (BEAKER) (test code = 415) 0.41 K/ L 0. 24-0.36 H EOSINOPHILS ABSOLUTE COUNT (BEAKER) (test code = 416) 0.08 K/ L 0.04-0.36 BASOPHILS ABSOLUTE COUNT (BEAKER) (test code = 417) 0.04 K/ L 0. 01-0.08 IMMATURE GRANULOCYTES-RELATIVE PERCENT (BEAKER) (test code = 2801) 0 % 0-1 CT LUMBAR SPINE [id number] 13:23:00 [place] [id number] Patient Name: HOANG DUBOIS MR #: [id number] : 1960 Age/Sex: 59/F Req #: [id number] Adm Physician: Ordered by: SHARMILA ESCUDERO MD Report #: [id number] Location: [facility] Room/Bed: Procedure: [id number] HOPD/CT LUMBAR SPINE WITHOUT-HOPD Exam Date: 06/22/19 Exam Time: 1300 REPORT STAT US: Signed CT LUMBAR SPINE WITHOUT-HOPD HISTORY: Back pain COMPARIS ON: None. TECHNIQUE: Axial CT images of the lumbar spine were obtained without contrast. Coronal and sagittal reconstructions obtained from the axia l data. One or more of the following dose reduction techniques were used: Aut omated exposure control, adjustment of the mA and/or kV according to patient s ize, and/or utilization of iterative reconstruction technique. DISCUSSION : Partially visualized posterior thoracolumbar fusion changes span to the L1 level. Associated laminectomies are present. Hardware streak artifacts obscure some details. Associated osteotomy changes are seen along the medial left iliac bone. There are 5 nonrib-bearing lumbar vertebral bodies. Lumbar lord osis is preserved. There is no significant scoliosis or subluxation. No frac ture, compression deformity, or destructive osseous lesion is seen. No gross s russell canal mass is seen. The paravertebral and paraspinal soft tissues are un remarkable. Mild multilevel lumbar spondylosis is present. Mild bilateral s acroiliac degenerative changes are present as well. L1-L2: No gross canal or foraminal stenosis. L2-L3: No gross canal or foraminal stenosis. L 3-L4: No gross canal or foraminal stenosis. L4-L5: No gross canal or forami nal stenosis. L5-S1: No gross canal or foraminal stenosis. Mild aortoi liac calcified atherosclerosis is present. IMPRESSION: 1. Partially vis ualized posterior thoracolumbar fusion changes spanning to the L1 level with a ssociated laminectomies. 2. No acute osseous abnormalities. 3. Mild multil evel lumbar spondylosis. No gross canal or foraminal stenosis. Signed by: Rosendo Mckeon M.D. on 06/22/2019 1:29 PM Dictated By: REYNA Garcia MD [id number] Transcribe d By: GLORY on 06/22/19 1735 COPY TO: SHARMILA ESCUDERO MD
== END 2020-09-07 09:30 | disposition home or self-care (01) ==
LOC: FSED 08:06
DX: S39.012A Strain of muscle, fascia and tendon of lower back, initial encounter (principal); M62.830 Muscle spasm of back; X50.0XXA Overexertion from strenuous movement or load, initial encounter; X50.9XXA Other and unspecified overexertion or strenuous movements or postures, initial encounter; I10 Essential (primary) hypertension; K21.9 Gastro-esophageal reflux disease without esophagitis; G89.29 Other chronic pain
CPT/HCPCS: 96372; 99282; J1885; J2060

== ENCOUNTER 2022-01-05 10:01 | Emergency (ER) | payer OTHER ==
[~2022-01-05] VITALS: Ht 157.5 cm; Wt 66.7 kg
[~2022-01-05 10:01] MED LIST changes: +CYCLOBENZAPRINE5 MG PO; +PREDNISONE20 MG PO
[2022-01-05] MEDS ORDERED: KETOROLAC TROMETHAMINE 60 MG/2 ML VIAL IM ONE (11:15)
[2022-01-05] MEDS ORDERED: DIAZEPAM5 MG PO (11:38)
[2022-01-05] MEDS ORDERED: KETOROLAC TROMETHAMINE 60 MG/2 ML VIAL ONE (11:48)
[2022-01-05] MEDS ORDERED: MELOXICAM7.5 MG PO (18:36)
== END 2022-01-05 11:47 | disposition home or self-care (01) ==
LOC: FSED 10:24
DX: M54.6 Pain in thoracic spine (principal); M62.830 Muscle spasm of back; I10 Essential (primary) hypertension; K21.9 Gastro-esophageal reflux disease without esophagitis; G89.29 Other chronic pain
CPT/HCPCS: 99283; J1885

== ENCOUNTER 2025-08-03 10:37 | Emergency (ER) | payer BC, MEDICARE ==
[~2025-08-03] VITALS: Ht 157.5 cm; Wt 68.0 kg
[~2025-08-03 10:37] MED LIST changes: +DIAZEPAM5 MG PO
[2025-08-03 10:45] VITALS: TEMP 97.7
[2025-08-03] MEDS ORDERED: FOLIC ACID0.4 MG PO (11:19)
[2025-08-03] MEDS ORDERED: KEPPRA750 MG PO (11:19)
[2025-08-03] MEDS ORDERED: METOPROLOL TART25 MG PO (11:19)
[2025-08-03] MEDS ORDERED: VITAMIN B-121000 MC2 PO (11:19)
[2025-08-03] MEDS ORDERED: DOCUSATE SODIU100 MG PO (11:19)
[2025-08-03] MEDS ORDERED: ATORVASTATIN CA20 MG PO (11:19)
[2025-08-03] MEDS ORDERED: ASPIRIN EC81 MG PO (11:19)
[2025-08-03 12:48] VITALS: PULSE 60; RESP 16; O2SAT 99
== END 2025-08-03 12:48 | disposition home or self-care (01) ==
LOC: FSED 10:53
DX: T42.6X1A Poisoning by other antiepileptic and sedative-hypnotic drugs, accidental (unintentional), initial encounter (principal); R40.0 Somnolence; I10 Essential (primary) hypertension; E78.5 Hyperlipidemia, unspecified; G40.909 Epilepsy, unspecified, not intractable, without status epilepticus; K21.9 Gastro-esophageal reflux disease without esophagitis; M54.9 Dorsalgia, unspecified; G89.29 Other chronic pain; Z86.73 Personal history of transient ischemic attack (TIA), and cerebral infarction without residual deficits
CPT/HCPCS: 80053; 93005; 99284